=== PATIENT | female | born 1960 | race Caucasian/White ===

== ENCOUNTER 2021-01-20 16:11 | Emergency (ER) | payer OTHER ==
[~2021-01-20] VITALS: Ht 167.6 cm; Wt 106.6 kg
[~2021-01-20 16:11] MED LIST: MESA800T PO
[2021-01-20 16:27] VITALS: BP_SYST 142
[2021-01-20 17:26] LABS: BASOPHILS % (AUTO) 0.4 % (0.0-2.0); EOSINOPHILS # (AUTO) 0.1 K/uL (0.0-0.4); EOSINOPHILS % (AUTO) 1.5 % (0.0-4.0); HEMATOCRIT 37.7 % (36-48); HEMOGLOBIN 12.4 g/dL (12.0-16.0); LYMPHOCYTES # (AUTO) 1.4 K/uL (1.0-5.5); LYMPHOCYTES % (AUTO) 21.8 % (20.5-51.5); MEAN CORPUSCULAR HEMOGLOBIN 29 pg (27-31); MEAN CORPUSCULAR HGB CONC 33 % (32-36); MEAN CORPUSCULAR VOLUME 89 fL (79.0-98.0); MONOCYTES # (AUTO) 0.3 K/uL (0.0-1.0); MONOCYTES % (AUTO) 4.7 % (1.7-9.3); NEUTROPHILS # (AUTO) 4.7 K/uL (1.8-7.7); NEUTROPHILS % (AUTO) 71.6 % (40.0-70.0); PLATELET COUNT (AUTO) 205 K/uL (130-430); RED BLOOD CELL COUNT(AUTO) 4.26 MIL/uL (4.2-6.2); RED CELL DISTRIBUTION WIDTH 13.2 % (9.0-15.0); WHITE BLOOD COUNT (AUTO) 6.6 K/uL (4.8-10.8)
[2021-01-20 17:39] LABS: CALCIUM 8.3 mg/dL (8.4-11.0); CREATININE 0.73 mg/dL (0.55-1.30); POTASSIUM 3.4 mmol/L (3.5-5.1)
[2021-01-20 17:45] LABS: ALBUMIN 3.3 g/dL (3.4-4.8); TOTAL BILIRUBIN 0.4 mg/dL (0.0-1.0)
[2021-01-20 17:56] LABS: BILIRUBIN,URINE NEGATIVE (NEGATIVE); BLOOD, URINE NEGATIVE (NEGATIVE); CLARITY/URINE CLEAR (CLEAR); COLOR,URINE YELLOW (YELLOW); GLUCOSE,URINE 1+ (NEGATIVE); KETONES,URINE NEGATIVE (NEGATIVE); LEUKOCYTE ESTERASE ,URINE NEGATIVE (NEGATIVE); NITRITE, URINE NEGATIVE (NEGATIVE); PH,URINE 5.5 (5.0-8.0); PROTEIN URINE NEGATIVE (NEGATIVE); UROBILINOGEN,URINE 0.2 (0.2-1.0)
[2021-01-20 18:27] LABS: BACTERIA,URINE RARE /HPF (None Seen); MUCUS,URINE None Seen /LPF (None Seen); RBC,URINE 0-3 /HPF (0-3); WBC,URINE 0-3 /HPF (0-3)
[2021-01-20] MEDS ORDERED: IBUP-1971 PO (18:36)
[2021-01-20] MEDS ORDERED: HYDR-3917 PO (18:36)
[2021-01-20 18:55] VITALS: BP_SYST 132
== END 2021-01-20 18:56 | disposition home or self-care (01) ==
LOC: SED 16:11
DX: K80.50 Calculus of bile duct without cholangitis or cholecystitis without obstruction (principal); Z79.899 Other long term (current) drug therapy
CPT/HCPCS: 36415; 71045; 76700-TC; 80053; 81000; 82150; 83605; 83690; 83880; 84484; 85025; 93005; 99285

== ENCOUNTER 2023-05-18 20:37 | Inpatient (IN) | payer OTHER, MEDICAID ==
[~2023-05-18] VITALS: Ht 170.2 cm; Wt 110.2 kg
[~2023-05-18 20:37] MED LIST changes: +HYDR-3917 PO; +IBUP-1971 PO
[2023-05-18 20:42] VITALS: BP_SYST 194; PULSE 64; RESP 18; TEMP 97.6; O2SAT 100
[2023-05-18] MEDS ORDERED: ONDANSETRON HCL 4 MG/2 ML VIAL IVP ONE (21:00)
[2023-05-18] MEDS ORDERED: NACL 0.9% 1,000 ML IV ONE ×2 (21:00→21:45)
[2023-05-18 21:28] LABS: BASOPHILS % (AUTO) 0.4 % (0.0-2.0); EOSINOPHILS % (AUTO) 0.5 % (0.0-4.0); HEMATOCRIT 39.7 % (36-48); HEMOGLOBIN 13.3 g/dL (12.0-16.0); LYMPHOCYTES # (AUTO) 1.3 K/uL (1.0-5.5); LYMPHOCYTES % (AUTO) 14.2 % (20.5-51.5); MEAN CORPUSCULAR HEMOGLOBIN 29 pg (27-31); MEAN CORPUSCULAR HGB CONC 33 % (32-36); MEAN CORPUSCULAR VOLUME 86 fL (79.0-98.0); MONOCYTES # (AUTO) 0.4 K/uL (0.0-1.0); MONOCYTES % (AUTO) 4.3 % (1.7-9.3); NEUTROPHILS # (AUTO) 7.2 K/uL (1.8-7.7); NEUTROPHILS % (AUTO) 80.6 % (40.0-70.0); PLATELET COUNT (AUTO) 214 K/uL (130-430); RED CELL DISTRIBUTION WIDTH 13.2 % (9.0-15.0); WHITE BLOOD COUNT (AUTO) 8.9 K/uL (4.8-10.8)
[2023-05-18] MEDS ORDERED: KETOROLAC TROMETHAMINE 30 MG VIAL IVP ONE (21:45)
[2023-05-18] MEDS ORDERED: MORPHINE 4 MG INJ. 4 MG/ML VIAL IVP ONE (21:45)
[2023-05-18 22:16] LABS: CALCIUM 7.9 mg/dL (8.4-11.0); CREATININE 0.84 mg/dL (0.55-1.30); POTASSIUM 4.2 mmol/L (3.5-5.1)
[2023-05-18 22:21] LABS: ALBUMIN 3.6 g/dL (3.4-4.8); TOTAL BILIRUBIN 0.6 mg/dL (0.0-1.0)
[2023-05-18 23:44] LABS: BILIRUBIN,URINE NEGATIVE (NEGATIVE); BLOOD, URINE 3+ (NEGATIVE); COLOR,URINE YELLOW (YELLOW); GLUCOSE,URINE 1+ (NEGATIVE); KETONES,URINE 2+ (NEGATIVE); LEUKOCYTE ESTERASE ,URINE NEGATIVE (NEGATIVE); NITRITE, URINE NEGATIVE (NEGATIVE); PROTEIN URINE NEGATIVE (NEGATIVE); UROBILINOGEN,URINE 0.2 (0.2-1.0)
[2023-05-19 00:29] LABS: CLARITY/URINE SLIGHTLY CLOUDY (CLEAR)
[2023-05-19] MEDS ORDERED: MORPHINE 4 MG INJ. 4 MG/ML VIAL IVP ONE (00:30)
[2023-05-19] MEDS ORDERED: ONDANSETRON HCL 4 MG/2 ML VIAL IVP ONE (00:30)
[2023-05-19 00:31] LABS: BACTERIA,URINE None Seen /HPF (None Seen); RBC,URINE 80-100 /HPF (0-3); WBC,URINE 0-3 /HPF (0-3)
[2023-05-19] MEDS ORDERED: NACL 0.9% 1,000 ML IV ONE (02:00)
[2023-05-19] MEDS ORDERED: KETOROLAC TROMETHAMINE 15 MG VIAL IVP PRN (02:00)
[2023-05-19] MEDS ORDERED: LIALDA (02:41)
[2023-05-19] MEDS ORDERED: METF-379 PO (02:41)
[2023-05-19 02:52] VITALS: BP_SYST 159; PULSE 74; RESP 18; TEMP 98.5
[2023-05-19] MEDS: ONDANSETRON HCL 4 MG/2 ML VIAL IVP PRN ×2 (04:01→16:28)
[2023-05-19] MEDS ORDERED: MORPHINE 4 MG INJ. 4 MG/ML VIAL IVP PRN (06:15)
[2023-05-19 08:00] VITALS: BP_SYST 153; PULSE 80; RESP 17; TEMP 99.3; O2SAT 98
[2023-05-19] MEDS ORDERED: cefTRIAXone 1 GM in D5W 50 ML IV SCH ×2 (09:00→10:15)
[2023-05-19] MEDS ORDERED: TAMSULOSIN HCL 0.4 MG CAP PO ONE (10:00)
[2023-05-19 11:45] VITALS: BP_SYST 136; PULSE 78; RESP 18; TEMP 99; O2SAT 94
[2023-05-19 17:30] VITALS: BP_SYST 141; PULSE 71; RESP 19; TEMP 99.3; O2SAT 98
[2023-05-19] MEDS ORDERED: INSULIN REGULAR, HUMAN 100 UNITS/ML, 3 ML VIAL (humuLIN R) SUBCUT PRN (17:30)
[2023-05-19] MEDS ORDERED: HYDROcodone/ACETAMIN 5-325 MG TAB (NORCO/ VICODIN) PO PRN (17:30)
[2023-05-19] MEDS ORDERED: IBUPROFEN 800 MG TABLET PO PRN (17:30)
[2023-05-19] MEDS ORDERED: DEXTROSE 50% JECT 50 ML DISP.SYRIN IVP PRN (17:30)
[2023-05-19] MEDS ORDERED: NALOXONE HCL 0.4 MG/ML AMP (NARCAN) IVP PRN (17:30)
[2023-05-19] MEDS ORDERED: TEMAZEPAM 15 MG CAPSULE PO PRN (17:45)
[2023-05-19] MEDS ORDERED: metFORMIN HCL 500 MG TABLET PO SCH (18:00)
[2023-05-19 20:00] VITALS: BP_SYST 142; PULSE 63; RESP 16; TEMP 98; O2SAT 97
[2023-05-19] MEDS: TAMSULOSIN HCL 0.4 MG CAP PO SCH (20:46)
[2023-05-19] MEDS ORDERED: MESALAMINE 400 MG CAPSULE.DR PO SCH (21:00)
[2023-05-19] MEDS: NACL 0.9% 1,000 ML IV SCH (21:01)
[2023-05-19 23:35] VITALS: O2SAT 97
[2023-05-20 00:12] VITALS: BP_SYST 132; PULSE 68; RESP 16; TEMP 97.7; O2SAT 95
[2023-05-20] MEDS: NACL 0.9% 1,000 ML IV SCH (06:17)
[2023-05-20 06:30] LABS: BASOPHILS % (AUTO) 0.3 % (0.0-2.0); EOSINOPHILS # (AUTO) 0.1 K/uL (0.0-0.4); EOSINOPHILS % (AUTO) 0.7 % (0.0-4.0); HEMATOCRIT 36.3 % (36-48); LYMPHOCYTES # (AUTO) 1.5 K/uL (1.0-5.5); LYMPHOCYTES % (AUTO) 17.9 % (20.5-51.5); MEAN CORPUSCULAR HEMOGLOBIN 29 pg (27-31); MEAN CORPUSCULAR HGB CONC 33 % (32-36); MEAN CORPUSCULAR VOLUME 88 fL (79.0-98.0); MONOCYTES # (AUTO) 0.6 K/uL (0.0-1.0); MONOCYTES % (AUTO) 6.6 % (1.7-9.3); NEUTROPHILS # (AUTO) 6.3 K/uL (1.8-7.7); NEUTROPHILS % (AUTO) 74.5 % (40.0-70.0); PLATELET COUNT (AUTO) 179 K/uL (130-430); RED BLOOD CELL COUNT(AUTO) 4.14 MIL/uL (4.2-6.2); RED CELL DISTRIBUTION WIDTH 13.3 % (9.0-15.0); WHITE BLOOD COUNT (AUTO) 8.4 K/uL (4.8-10.8)
[2023-05-20 07:16] LABS: ALBUMIN 2.9 g/dL (3.4-4.8); CREATININE 0.91 mg/dL (0.55-1.30); POTASSIUM 3.4 mmol/L (3.5-5.1); TOTAL BILIRUBIN 0.6 mg/dL (0.0-1.0); TOTAL PROTEIN, SERUM 5.5 g/dL (6.4-8.3)
[2023-05-20 08:00] VITALS: BP_SYST 130; PULSE 69; RESP 18; TEMP 97.5; O2SAT 92; O2SAT 96
[2023-05-20 08:07] LABS: CALCIUM 6.9 mg/dL (8.4-11.0)
[2023-05-20] MEDS ORDERED: TAMSULOSIN HCL 0.4 MG CAP PO SCH (09:00)
[2023-05-20] MEDS ORDERED: LIALDA 1.2 GM PO SCH (09:00)
[2023-05-20] MEDS: TAMSULOSIN HCL 0.4 MG CAP PO SCH (09:26)
[2023-05-20] MEDS: METFORMIN 500 MG TABLET PO SCH ×2 (09:27→18:32)
[2023-05-20] MEDS ORDERED: POTASSIUM CHLORIDE 20 MEQ TAB.PRT.SR PO ONE (11:00)
[2023-05-20 11:30] VITALS: BP_SYST 151; PULSE 76; RESP 18; TEMP 98; O2SAT 95
[2023-05-20] MEDS ORDERED: CALCIUM CARBONATE 500 MG/ TAB.CHEW PO ONE (12:15)
[2023-05-20] MEDS ORDERED: CEPH250C PO (12:30)
[2023-05-20] MEDS ORDERED: DIF100 PO (12:31)
[2023-05-20] MEDS ORDERED: LACT1CAP89 PO (12:32)
[2023-05-20 16:52] VITALS: BP_SYST 153; PULSE 78; RESP 18; TEMP 98.5; O2SAT 97
[2023-05-20 17:25] LABS: CALCIUM 8.1 mg/dL (8.4-11.0); CREATININE 0.89 mg/dL (0.55-1.30); POTASSIUM 4.2 mmol/L (3.5-5.1)
[2023-05-20] MEDS ORDERED: CALCIUM CARBONATE 500 MG/ TAB.CHEW PO SCH (18:00)
[2023-05-20 19:46] VITALS: BP_SYST 149; PULSE 85; RESP 18; TEMP 98.8; O2SAT 98
[2023-05-21] MEDS ORDERED: POTASSIUM CHLORIDE 20 MEQ/PKT PACKET PO SCH (09:00)
[2023-05-21] MEDS ORDERED: FLUCONAZOLE 100 MG TABLET (DIFLUCAN) PO SCH (09:00)
== END 2023-05-20 21:23 | disposition home or self-care (01) | DRG 690 ==
LOC: SED 20:37 → SMU 05-19 01:51
PROVIDERS: ADMIT Internal Medicine; ATTEND Internal Medicine
DX: N13.6 Pyonephrosis (principal); K51.90 Ulcerative colitis, unspecified, without complications; E66.9 Obesity, unspecified; E11.9 Type 2 diabetes mellitus without complications; E87.6 Hypokalemia; E83.51 Hypocalcemia; Z87.442 Personal history of urinary calculi; Z79.891 Long term (current) use of opiate analgesic; Z79.899 Other long term (current) drug therapy; Z68.38 Body mass index [BMI] 38.0-38.9, adult
CPT/HCPCS: 36415; 76376; 76770; 80048; 80053; 81000; 82962; 83037; 83605; 83690; 83735; 85025; 85610-TC; 85730-TC; 87040; 87086; 99285; J0696; J1815; J1885; J1956; J2270; J2405; J7060